=== PATIENT | female | born 2000 | race Caucasian/White ===

== ENCOUNTER 2022-06-13 14:38 | Emergency (ER) | payer OTHER ==
[~2022-06-13] VITALS: Ht 161.5 cm; Wt 83.7 kg
[2022-06-13 15:17] VITALS: BP 137/80
[2022-06-13] MEDS ORDERED: NACL 0.9% 1,000 ML IV SCH (15:25)
[2022-06-13 16:09] LABS: HEMATOCRIT 29.6 % (36-48); HEMOGLOBIN 9.4 g/dL (12.0-16.0); MEAN CORPUSCULAR HEMOGLOBIN 28 pg (27-31); MEAN CORPUSCULAR HGB CONC 32 g/dL (33-37); PLATELET COUNT (AUTO) 759 K/uL (140-450); RED CELL DISTRIBUTION WIDTH 15.5 % (11.6-13.7); WHITE BLOOD COUNT (AUTO) 20.5 K/uL (4.8-10.8)
[2022-06-13 16:23] LABS: BILIRUBIN,URINE NEGATIVE (NEGATIVE); BLOOD, URINE 3+ (NEGATIVE); COLOR,URINE YELLOW (YELLOW); LEUKOCYTE ESTERASE ,URINE 3+ (NEGATIVE); NITRITE, URINE POSITIVE (NEGATIVE); UGLUCOSE NEGATIVE (NEGATIVE)
[2022-06-13 16:30] LABS: ALBUMIN 2.7 g/dL (3.4-5.0); ANION GAP 11.7 (8-16); CARBON DIOXIDE 26.7 mmol/L (21-32); CREATININE 1.6 mg/dL (0.6-1.3); POTASSIUM 4.4 mmol/L (3.5-5.1); TOTAL BILIRUBIN 0.5 mg/dL (0.0-1.0)
[2022-06-13 16:32] LABS: APPEARANCE,URINE CLOUDY (CLEAR)
[2022-06-13 16:42] LABS: LYMPHOCYTES % (MANUAL) 18 % (20-46); MONOCYTES % (MANUAL) 5 % (5-12)
[2022-06-13 16:54] LABS: RBC,URINE 11-20 (MOD) /HPF (0-5); WBC,URINE TOO MANY TO COUNT /HPF (0-5)
--- NOTE | 2022-06-13 17:08 | NUR ---
PT TO BED 11 AT THIS TIME
[2022-06-13] MEDS ORDERED: NACL 0.9% 2,000 ML IV SCH (17:10)
[2022-06-13] MEDS ORDERED: cefTRIAXone 2,000 MG in DEXTROSE 5% 100 ML IV ONE (17:10)
[2022-06-13] MEDS ORDERED: cefTRIAXone 2,000 MG VIAL ONE (17:11)
--- NOTE | 2022-06-13 17:24 | NUR ---
21/F WALKED IN C/O R FLANK PAIN , N/V, PAINFUL URINATION , FEET&HANDS SWELLING X YESTERDAY. TACHY AT BEDSIDE. ON GOWN AND MONITOR. IV ESTABLISHED TO LEFT AC WITH 20G. BLOOD DRAWN, COVID SWAB COLLECTED. PMH: KIDNEY STONE
[2022-06-13 17:56] LABS: PROTHROMBIN TIME 11.7 secs (10.8-13.4)
[2022-06-13] MEDS ORDERED: MORPHINE SULFATE 4 MG/ML SYR IVP ONE (19:05)
[2022-06-13] MEDS ORDERED: ONDANSETRON 4 MG/2 ML VIAL IVP ONE (19:05)
--- NOTE | 2022-06-13 19:35 | NUR ---
Patient resting in bed, A/Ox4, chest rise and fall symmetrical, no s/s of distress, patient on monitor, family at bedside.
--- NOTE | 2022-06-13 21:01 | NUR ---
Patient resting in bed, A/Ox4, chest rise and fall symmetrical, no s/s of distress, patient on monitor, family at bedside.
[2022-06-13] MEDS ORDERED: PIPERACILLIN/TAZOBACTAM 3.375 GM in DEXTROSE 5% 50 ML IV ONE (23:00)
--- NOTE | 2022-06-13 23:20 | NUR ---
Patient resting in bed, A/Ox4, chest rise and fall symmetrical, no c/o pain or s/s of distress, patient on monitor, family at bedside.
--- NOTE | 2022-06-14 01:00 | NUR ---
Patient resting in bed, A/Ox4, chest rise and fall symmetrical, no c/o pain or s/s of distress, patient on monitor, family at bedside.
[2022-06-14] MEDS ORDERED: PIPERACILLIN/TAZOBACTAM 3.375 GM VIAL IV ONE (01:12)
[2022-06-14 01:21] VITALS: BP 128/75
--- NOTE | 2022-06-14 01:23 | NUR ---
Patient to be transferred to [facility]. Is being transferred due to higher level of care. Receiving facility has accepting physician and available space. ER physician has signed transfer form. Patient or responsible republican has agreed to transfer and signed form. Patient belongings inventoried and will be sent with patient. Copy of nursing notes, lab reports, EKG, Physicians Orders and X-rays to be sent with patient. Report called to Chanel RN at receiving facility. Chanel RN verbalized understanding of report, no further questions. [facility] ambulance service has arrived and is transferring patient, [facility] ambulance staff verbalized understanding of report, no further questions.
== END 2022-06-14 01:23 | disposition short-term general hospital (02) ==
LOC: MED 14:38
DX: A41.9 Sepsis, unspecified organism (principal); D64.9 Anemia, unspecified; N17.9 Acute kidney failure, unspecified; N11.1 Chronic obstructive pyelonephritis; D76.3 Other histiocytosis syndromes; N12 Tubulo-interstitial nephritis, not specified as acute or chronic; Z20.822 Contact with and (suspected) exposure to COVID-19
CPT/HCPCS: 36415; 71045; 74176; 80053; 81001; 81025; 83605; 83690; 84484; 85025; 85610; 85730; 87040; 87086; 87426; 93005; 96365; 96367; 96375; 99291; J0696; J2270; J2405; J2543; J7030; Q0092